=== PATIENT | female | born 1940 | race Caucasian/White ===

== ENCOUNTER 2019-03-28 11:32 | Inpatient (IN) ==
[2019-03-28] MEDS ORDERED: FUROSEMIDE 40 MG/4 ML VIAL IV ONE (12:02)
--- NOTE | 2019-03-28 12:05 | Emergency Department Note ---
General Adult HPI - General Chief complaint: Chest Pain Stated complaint: chest pain Time Seen by Provider: 03/28/19 11:48 Source: patient Mode of arrival: wheelchair Limitations: other (Possible cognitive decline) - History of Present Illness HPI Narrative: 78-year-old female comes in for 3-week history of swelling in her lower legs. Apparently she took a one-month trip to [place] with a group and ran out of her diuretic while there. Anyways since she has come back from [place] her legs have swollen now. She normally sees Nadia Howell over [facility] but she could not get in today so she went to the [facility] care clinic at [facility]. They sent her here. She was complaining of a little bit of chest pain as well but this is resolved. No shortness of breath fever chills nausea vomiting. I am unable to get much in the way of meaningful history or review of systems as patient is clearly not mentating well in terms of short-term memory but this may be her baseline - Related Data Home Medications Medication Instructions Recorded Confirmed Albuterol Sulfate 2.5 mg IH DAILY 03/08/17 11/18/18 Atorvastatin [Lipitor] 20 mg PO HS 03/08/17 11/18/18 LORazepam [Ativan] 2 mg PO HS 03/08/17 11/18/18 Lisinopril [Zestril] 5 mg PO DAILY 03/08/17 11/18/18 fluoxetine 20 mg capsule 20 mg PO QDAY 05/20/18 01/21/19 pentosan polysulfate sodium 100 mg 100 mg PO TID 05/20/18 01/21/19 capsule chlorthalidone 25 mg tablet 25 mg PO QDAY 08/13/18 11/18/18 lorazepam 0.5 mg tablet 0.5 mg PO BID PRN tab 08/13/18 11/18/18 potassium chloride 10 mEq 10 meq PO QDAY 08/13/18 11/18/18 capsule,extended release Sertraline [Zoloft] 25 mg PO DAILY 08/23/18 11/18/18 Previous Rx's Medication Instructions Recorded atorvastatin 20 mg tablet 20 mg PO QDAY #30 tab 01/21/19 Allergies Allergy/AdvReac Type Severity Reaction Status Date / Time Carbapenems Allergy Intermediate HIVES Verified 01/21/19 14:55 Cephalosporins Allergy Intermediate HIVES Verified 01/21/19 14:55 penicillin G [PENICILLIN G] Allergy Intermediate HIVES Verified 01/21/19 14:55 hydromorphone [From DILAUDID] AdvReac Mild HALLUCINATI Verified 01/21/19 14:55 ONS ADHESIVE TAPE AdvReac Mild SKIN TEARS Uncoded 08/23/18 07:34 Review of Systems All systems ED: reviewed and negative except as stated. Past Medical History - Past Medical History Attestation: Yes: The following information was validated with the patient. [facility] Narrative: Family History (Last Updated 08/13/18 @ 08:30 by Terra Nino) Mother Arthritis Cancer Father Arthritis Heart attack Sister Arthritis Cancer Medical History (Last Updated 08/13/18 @ 08:30 by Terra Nino) Risk for falls (Chronic) Joint pain (Chronic) High blood pressure (Chronic) Insomnia (Chronic) Gallbladder problem (Chronic) Heart trouble (Chronic) Diabetes (Chronic) Depression (Chronic) Daytime sleepiness (Chronic) Bowel disease (Chronic) Blood disorder (Chronic) History of blood clots (Chronic) Bleeding tendency (Chronic) Asthma (Chronic) Diabetes mellitus type 2, controlled, without complications (Chronic) COPD (chronic obstructive pulmonary disease) (Chronic) Crohn's disease (Chronic) CVA (cerebral vascular accident) (Chronic) Bilateral leg edema (Acute) SOB (shortness of breath) (Acute) Fatigue (Acute) Weight gain (Acute) Diarrhea (Acute) Systolic murmur (Chronic) Past Surgical History (Last Updated 08/13/18 @ 08:30 by Terra Nino) History of intraocular lens implant (Acute) History of bowel resection (Chronic ~1989) History of cholecystectomy (Chronic ~1967) History of colonoscopy (Chronic) History of hysterectomy (Chronic ~1969) Medical history: Reports: asthma, COPD, CVA, hypertension, other (Previous DVT). Denies: CAD (coronary artery disease), CHF, myocardial infarction Psychiatric history: Reports: anxiety, depression - Social History smoking status: Former smoker Physical Exam Normocephalic atraumatic. Conjunctive are clear sclerae white nonicteric. N.o nasal discharge or congestion. Oropharynx pink and moist. Dentures. Neck is supple without lymphadenopathy thyromegaly or carotid bruit. Heart is regular rate and rhythm no murmur. Lungs are clear to auscultation bilaterally without wheezes rales rhonchi or respiratory distress. Abdomen soft nontender nondistended. She does have pedal edema +2. She is alert oriented able to answer questions-but slowly and it seems like she does not initially understand the question sometimes. Concern for possible cognitive decline Limitations: no limitations Course Vital Signs Temperature 98.2 F 03/28/19 11:34 Pulse Rate 67 03/28/19 11:34 Respiratory Rate 22 03/28/19 11:34 Blood Pressure 129/59 03/28/19 11:34 Pulse Oximetry (%) 92 03/28/19 11:34 Temperature 98.2 F 03/28/19 11:34 Pulse Rate 73 03/28/19 15:01 Respiratory Rate 13 03/28/19 15:01 Blood Pressure 105/67 03/28/19 15:01 Pulse Oximetry (%) 94 03/28/19 15:01 Medical Decision Making - Lab Data Lab results reviewed: Yes I reviewed the patient's lab results. Result diagrams: 03/28/19 12:23 03/28/19 12:23 Lab Results 03/28/19 03/28/19 03/28/19 Range/Units 12:23 12:23 12:23 WBC 10.5 (4.5-11.0) K/mcL RBC 4.18 (4.00-5.20) M/mcL Hgb 13.2 (12.0-15.0) g/dL Hct 38.6 (36.0-48.0) % POC Hct 38.0 (36.0-48.0) % MCV 92.4 (80.0-100.0) fL MCH 31.5 (26.0-34.0) pg MCHC 34.2 (31.0-36.0) g/dL RDW 15.2 H (11.5-14.5) % Plt Count 273 (140-440) K/mcL MPV 6.9 L (7.4-10.4) fL Gran % 77.6 (38.0-78.0) % Lymph % (Auto) 14.8 L (15.5-49.0) % Bremer % (Auto) 6.9 (1.0-12.0) % Eos % (Auto) 0.4 (0.0-7.0) % Baso % (Auto) 0.3 (0.0-2.0) % Gran # 8.1 H (1.8-8.0) K/mcL Lymph # (Auto) 1.6 (1.5-4.8) K/mcL Bremer # (Auto) 0.7 (0.1-0.9) K/mcL Eos # (Auto) 0 (0.0-0.7) K/mcL Baso # (Auto) 0 (0.0-0.3) K/mcL PT (11.9-14.5) sec INR (0.9-1.1) POC Sodium 137 (133-145) mmol/L Sodium 138 (133-145) mmol/L POC Potassium 2.2 L* (3.3-5.1) mmol/L Potassium 2.3 L* (3.3-5.1) mmol/L POC Chloride 89 L (96-108) mmol/L Chloride 92 L (96-108) mmol/L Carbon Dioxide 33 H (22-30) mmol/L POC Total CO2 36 H (22-30) mmol/L Anion Gap 13.0 (8-16) POC BUN 23 (8-23) mg/dl BUN 24 H (8-23) mg/dl Creatinine 0.9 (0.6-1.1) mg/dl POC Creatinine 1.0 (0.6-1.1) mg/dl GFR Calculation 61 Glucose 109 H (70-105) mg/dL POC Glucose 108 H (70-105) mg/dL Calcium 9.5 (8.6-10.4) mg/dl POC WB Ioniz Calcium 1.12 L (1.16-1.32) mmol/L Total Bilirubin 2.2 H (0.0-1.0) mg/dL AST 30 (0-37) U/l ALT 34 (0-40) U/l Alkaline Phosphatase 63 (39-117) U/L Total Creatine Kinase 70 69 (24-170) IU/L CK-MB (CK-2) 3.3 H (0-2.9) ng/ml Myoglobin 73 H (25-58) ng/ml Troponin T (0-0.03) ng/ml NT-Pro-B Natriuret Pep 276.4 (0-450) pg/ml Total Protein 6.4 (5.9-8.4) gm/dL Albumin 3.9 (3.2-5.2) gm/dL Globulin 2.5 (2.2-3.7) gm/dL Albumin/Globulin Ratio 1.6 (1.0-2.3) Lipase 12 (7-60) U/L 03/28/19 03/28/19 03/28/19 Range/Units 12:23 12:23 14:28 WBC (4.5-11.0) K/mcL RBC (4.00-5.20) M/mcL Hgb (12.0-15.0) g/dL Hct (36.0-48.0) % POC Hct (36.0-48.0) % MCV (80.0-100.0) fL MCH (26.0-34.0) pg MCHC (31.0-36.0) g/dL RDW (11.5-14.5) % Plt Count (140-440) K/mcL MPV (7.4-10.4) fL Gran % (38.0-78.0) % Lymph % (Auto) (15.5-49.0) % Bremer % (Auto) (1.0-12.0) % Eos % (Auto) (0.0-7.0) % Baso % (Auto) (0.0-2.0) % Gran # (1.8-8.0) K/mcL Lymph # (Auto) (1.5-4.8) K/mcL Bremer # (Auto) (0.1-0.9) K/mcL Eos # (Auto) (0.0-0.7) K/mcL Baso # (Auto) (0.0-0.3) K/mcL PT 14.6 H (11.9-14.5) sec INR 1.1 (0.9-1.1) POC Sodium (133-145) mmol/L Sodium (133-145) mmol/L POC Potassium (3.3-5.1) mmol/L Potassium (3.3-5.1) mmol/L POC Chloride (96-108) mmol/L Chloride (96-108) mmol/L Carbon Dioxide (22-30) mmol/L POC Total CO2 (22-30) mmol/L Anion Gap (8-16) POC BUN (8-23) mg/dl BUN (8-23) mg/dl Creatinine (0.6-1.1) mg/dl POC Creatinine (0.6-1.1) mg/dl GFR Calculation Glucose (70-105) mg/dL POC Glucose (70-105) mg/dL Calcium (8.6-10.4) mg/dl POC WB Ioniz Calcium (1.16-1.32) mmol/L Total Bilirubin (0.0-1.0) mg/dL AST (0-37) U/l ALT (0-40) U/l Alkaline Phosphatase (39-117) U/L Total Creatine Kinase (24-170) IU/L CK-MB (CK-2) (0-2.9) ng/ml Myoglobin (25-58) ng/ml Troponin T 0.01 < 0.01 (0-0.03) ng/ml NT-Pro-B Natriuret Pep (0-450) pg/ml Total Protein (5.9-8.4) gm/dL Albumin (3.2-5.2) gm/dL Globulin (2.2-3.7) gm/dL Albumin/Globulin Ratio (1.0-2.3) Lipase (7-60) U/L - Radiology Data Radiology results reviewed: Yes I reviewed the patient's radiology results. Chest x-ray showed no acute change - EKG Data EKG #1 EKG attestation: Yes I reviewed and interpreted this EKG., Yes There are no EKG findings of acute coronary syndrome, Yes This EKG will be read by brim stitcher EKG results narrative: EKG does not meet criteria as there is only ST depression of 1 mm in V3 but not in 2 contiguous leads Disposition Pt seen by SOLAR PANEL INSTALLATION SUPERVISOR/PA only: No Clinical Impression: Hypokalemia Summary: 78-year-old with recurring acute on chronic leg edema likely from CHF comes in after she ran out of medicine 3 weeks ago. She had some mild chest pain so we will go ahead and order an echo as well as laboratory. EKG was unrevealing. Chest x-ray is pending. Hypokalemia unclear cause. Start K rider and 40 mEq p.o. Repeat troponin was done which was also negative despite CK-MB being mildly elevated. Chest x-ray was unrevealing Discussed findings with hospitalist, Dr. Novak. He agreed to accept the patient for further care and evaluation in the Disposition: Xfer As Inpt ([facility]) Condition: Serious Referrals: Nadia Howell ARNP [Primary Care Provider] -
[2019-03-28] MEDS ORDERED: POTASSIUM CHLORIDE 40 MEQ in DEXTROSE 5% IN WATER 500 ML IV ONE (12:38)
[2019-03-28] MEDS ORDERED: POTASSIUM CHLORIDE 20 MEQ TABLET PO ONE (12:38)
[2019-03-28 12:39] LABS: POC Blood Urea Nitrogen 23 mg/dl (8-23); POC CO2 36 mmol/L (22-30); POC Calcium, Ionized 1.12 mmol/L (1.16-1.32); POC Chloride 89 mmol/L (96-108); POC Glucose, Random 108 mg/dL (70-105); POC Potassium 2.2 mmol/L (3.3-5.1); POC Sodium 137 mmol/L (133-145)
--- NOTE | 2019-03-28 12:45 | XRay Report ---
INDICATION: Chest pain TECHNIQUE: PA and lateral upright chest x-ray COMPARISON: Previous chest x-rays dated 06/10/2018, 12/16/2017, 05/07/2014 FINDINGS:There is a loop recording device projected over the left hemithorax. Lungs are negative. No parenchymal infiltrate or mass. No focal pulmonary parenchymal abnormality. Heart size and vascularity are normal. No pulmonary edema. No pulmonary congestion. There is no pleural fluid. IMPRESSION: 1. No acute or focal abnormality 2. No interval change since 06/10/2018 Interpreted and Authenticated by: Jesus Cisneros 03/28/19
[2019-03-28 12:50] LABS: Basophils # (Auto) 0 K/mcL (0.0-0.3); Basophils % (Auto) 0.3 % (0.0-2.0); Eosinophils # (Auto) 0 K/mcL (0.0-0.7); Eosinophils % (Auto) 0.4 % (0.0-7.0); Granulocytes % (Auto) 77.6 % (38.0-78.0); Hematocrit 38.6 % (36.0-48.0); Hemoglobin 13.2 g/dL (12.0-15.0); Lymphocytes # (Auto) 1.6 K/mcL (1.5-4.8); Lymphocytes % (Auto) 14.8 % (15.5-49.0); Mean Cell Volume 92.4 fL (80.0-100.0); Mean Corpuscular HGB Conc 34.2 g/dL (31.0-36.0); Mean Platelet Volume 6.9 fL (7.4-10.4); Monocytes # (Auto) 0.7 K/mcL (0.1-0.9); Monocytes % (Auto) 6.9 % (1.0-12.0); Platelet Count 273 K/mcL (140-440); RBC 4.18 M/mcL (4.00-5.20); Red Cell Distribution Width 15.2 % (11.5-14.5); WBC 10.5 K/mcL (4.5-11.0)
[2019-03-28 12:59] LABS: INR 1.1 (0.9-1.1); Prothrombin Time 14.6 sec (11.9-14.5)
[2019-03-28 13:13] LABS: Creatine Kinase MB 3.3 ng/ml (0-2.9); Myoglobin 73 ng/ml (25-58)
[2019-03-28 13:14] LABS: proBNP 276.4 pg/ml (0-450)
[2019-03-28 13:20] LABS: Creatine Kinase 69 IU/L (24-170)
[2019-03-28 13:27] LABS: ALT/SGPT 34 U/l (0-40); AST/SGOT 30 U/l (0-37); Albumin 3.9 gm/dL (3.2-5.2); Albumin/Globulin Ratio 1.6 (1.0-2.3); Alkaline Phosphatase 63 U/L (39-117); Bilirubin,Total 2.2 mg/dL (0.0-1.0); Blood Urea Nitrogen 24 mg/dl (8-23); Calcium 9.5 mg/dl (8.6-10.4); Carbon Dioxide 33 mmol/L (22-30); Chloride 92 mmol/L (96-108); Creatine Kinase 70 IU/L (24-170); Globulin 2.5 gm/dL (2.2-3.7); Glomerular Filtration Rate 61; Glucose 109 mg/dL (70-105)
--- NOTE | 2019-03-28 15:36 | Internal Med History&Physical ---
Medical - H&P: [facility] Patient information: Note initiated : 03/28/19 at 3:35 pm Service Date, if different from initiated Date: [] Patient: Maddy Lo a 78 y/o F admitted on for chest pain. Chief Complaint: [] Chief complaint: Ankle swelling History of present illness: Ms. Lo is a 78 year old F morbidly obese lady with a history of chronic lower extremity lymphedema/hypertension/CVA/COPD who presents to the ER after feeling extremely weak unable to move her legs. Apparently she went to [facility] today but was unable to walk. She subsequently called her friend and was brought into the ER for evaluation. Initial work-up was essentially unremarkable except for a potassium of 2.2. Patient received 40 mg of oral and IV potassium and subsequently hospitalist service was consulted in light of critical hypokalemia. Echo was ordered however review of echocardiogram performed June 2018 reveals diastolic dysfunction with LVH and preserved EF. She clearly denies recent diarrhea, nausea vomiting or lack of appetite. She normally uses diuretics for a long-standing lower extremity lymphedema and ran out of it during a trip to [place]. Patient restarted taking diuretics after ex periencing increasing weight gain along with lower extremity swelling and difficulty ambulation. Other than that patient denies high salt intake, chest pain, lightheadedness, chest palpitation or huov-pkg-wgiuiaz medications intake. Review of systems A 10 point review of system was performed and is negative except for one discussed above Medical - H&P: PMH Medical history: Risk for falls (Chronic) Joint pain (Chronic) High blood pressure (Chronic) Insomnia (Chronic) Gallbladder problem (Chronic) Heart trouble (Chronic) Diabetes (Chronic) Depression (Chronic) Daytime sleepiness (Chronic) Bowel disease (Chronic) Blood disorder (Chronic) History of blood clots (Chronic) Bleeding tendency (Chronic) Asthma (Chronic) Diabetes mellitus type 2, controlled, without complications (Chronic) with weight loss of 78 lbs., reports has resolved 1--19 COPD (chronic obstructive pulmonary disease) (Chronic) Crohn's disease (Chronic) treated with Pentasa. CVA (cerebral vascular accident) (Chronic) Bilateral leg edema (Acute) SOB (shortness of breath) (Acute) Fatigue (Acute) Weight gain (Acute) Diarrhea (Acute) Systolic murmur (Chronic) Surgical History (Updated 03/08/19 @ 08:30 by Terra Nino) History of intraocular lens implant (Acute) bilateral History of bowel resection (Chronic ~1989) History of cholecystectomy (Chronic ~1967) History of colonoscopy (Chronic) History of hysterectomy (Chronic ~1969) Social History (Updated 03/28/19 @ 11:15 by JENIFFER Tanner) marital status: smoking status: Former smoker alcohol intake frequency: holiday/special occasion only substance use type: does not use Lives at [facility] alone and usually drives Family history: reviewed and not pertinent Drug use: none Alcohol use: none Medical - H&P: Meds Home Medications Medication Instructions Recorded Confirmed Type Albuterol Sulfate 2.5 mg IH DAILY 03/08/17 11/18/18 History Atorvastatin [Lipitor] 20 mg PO HS 03/08/17 11/18/18 History LORazepam [Ativan] 2 mg PO HS 03/08/17 11/18/18 History Lisinopril [Zestril] 5 mg PO DAILY 03/08/17 11/18/18 History fluoxetine 20 mg capsule 20 mg PO QDAY 05/20/18 01/21/19 History pentosan polysulfate sodium 100 mg 100 mg PO TID 05/20/18 01/21/19 History capsule chlorthalidone 25 mg tablet 25 mg PO QDAY 08/13/18 11/18/18 History lorazepam 0.5 mg tablet 0.5 mg PO BID PRN tab 08/13/18 11/18/18 History potassium chloride 10 mEq 10 meq PO QDAY 08/13/18 11/18/18 History capsule,extended release Sertraline [Zoloft] 25 mg PO DAILY 08/23/18 11/18/18 History atorvastatin 20 mg tablet 20 mg PO QDAY #30 tab 01/21/19 01/21/19 Rx Allergies Allergy/AdvReac Type Severity Reaction Status Date / Time Carbapenems Allergy Intermediate HIVES Verified 01/21/19 14:55 Cephalosporins Allergy Intermediate HIVES Verified 01/21/19 14:55 penicillin G [PENICILLIN G] Allergy Intermediate HIVES Verified 01/21/19 14:55 hydromorphone [From DILAUDID] AdvReac Mild HALLUCINATI Verified 01/21/19 14:55 ONS ADHESIVE TAPE AdvReac Mild SKIN TEARS Uncoded 08/23/18 07:34 Medical - H&P: Exam - Constitutional Vitals: Temp Pulse Resp BP Pulse Ox 98.2 F 72 13 88/33 97 03/28/19 11:34 03/28/19 15:31 03/28/19 15:31 03/28/19 15:31 03/28/19 15:31 General appearance: morbidly obese Exam: Alert but anxious head normocephalic Oral cavity dry No ear nose discharge Eye movement symmetrical Neck no lymphadenopathy or JVD S1-S2 regular rhythm ESM grade 1 Diminished breath sounds bases Abdomen soft nontender nondistended, pendulous Lower extremity 1+ pitting edema from knee to the ankle extending to the dorsum of the foot Skin no suspicious lesion psych alert cooperative Neuro nonfocal Medical - H&P: Reslt - Labs CBC & Chem 7: 03/28/19 12:23 03/28/19 12:23 Labs: Short CBC 03/28/19 Range/Units 12:23 WBC 10.5 (4.5-11.0) K/mcL Hgb 13.2 (12.0-15.0) g/dL Hct 38.6 (36.0-48.0) % Plt Count 273 (140-440) K/mcL BMP 03/28/19 12:23 Sodium 138 Potassium 2.3 L* Chloride 92 L Carbon Dioxide 33 H BUN 24 H Creatinine 0.9 Glucose 109 H Calcium 9.5 Cardiac Enzymes 03/28/19 03/28/19 03/28/19 Range/Units 12:23 12:23 12:23 Total Creatine Kinase 70 69 (24-170) IU/L CK-MB (CK-2) 3.3 H (0-2.9) ng/ml Troponin T 0.01 (0-0.03) ng/ml 03/28/19 Range/Units 14:28 Total Creatine Kinase (24-170) IU/L CK-MB (CK-2) (0-2.9) ng/ml Troponin T < 0.01 (0-0.03) ng/ml Liver Function 03/28/19 Range/Units 12:23 Total Bilirubin 2.2 H (0.0-1.0) mg/dL AST 30 (0-37) U/l ALT 34 (0-40) U/l Alkaline Phosphatase 63 (39-117) U/L Albumin 3.9 (3.2-5.2) gm/dL Medical - H&P: A/P (1) Hypokalemia Current visit: Yes Status: Acute * Critical hypokalemia 2.2-check magnesium level. Underlying metabolic alkalosis likely secondary to diuresis/thiazide use. Start oral and IV replacement. Unclear etiology. No indication of hyperaldosteronism. * Lower external lymphedema-last echo preserved ejection fraction with diastolic dysfunction and likely pulmonary hypertension in the setting of obesity * History of COPD likely CO2 retention * History of hypertension hold KENNY inhibitor/thiazide until systolics and potassium improves * Hyperlipidemia continue statin * Anxiety disorder continue SSRI(current medication based list being obtained as unlikely patient on dual SSRI based on home med list) * Full code * Prophylaxis - heparin PLAN * Observation admit * aggressive IV and oral potassium replacement * Check magnesium * Limb elevation/diuresis * Prior medical condition management home meds * PT OT/nutrition support * Discharge planning
[2019-03-28] MEDS ORDERED: MAGNESIUM SULFATE 2 GM/50 ML BAG IV PRN (16:06)
[2019-03-28] MEDS ORDERED: POTASSIUM CHLORIDE 40 MEQ in DEXTROSE 5% IN WATER 500 ML IV PRN (16:06)
[2019-03-28] MEDS ORDERED: POTASSIUM CHLORIDE 20 MEQ PACKET PO PRN (16:06)
[2019-03-28] MEDS ORDERED: ONDANSETRON 4 MG/2 ML VIAL IV PRN (16:06)
[2019-03-28] MEDS ORDERED: ACETAMINOPHEN 650 MG/65 ML BOTTLE IV PRN (16:06)
[2019-03-28] MEDS: FUROSEMIDE 40 MG/4 ML VIAL IV SCH (16:46)
[2019-03-28] MEDS: POTASSIUM CHLORIDE 20 MEQ/15 ML ML PO SCH (16:48)
[2019-03-28] MEDS: ACETAMINOPHEN 325 MG TABLET PO PRN (20:27)
[2019-03-28] MEDS: HEPARIN 5,000 UNIT/ML VIAL SQ SCH (20:27)
[2019-03-28] MEDS: DOCUSATE SODIUM 100 MG CAPSULE PO SCH (20:27)
[2019-03-28] MEDS: SENNOSIDES/DOCUSATE SODIUM 1 TAB TABLET PO SCH (20:27)
[2019-03-28] MEDS: 0.9 % SODIUM CHLORIDE 10 ML SYRINGE IV SCH (20:29)
[2019-03-28 21:30] LABS: ALT/SGPT 33 U/l (0-40); AST/SGOT 31 U/l (0-37); Albumin 3.6 gm/dL (3.2-5.2); Albumin/Globulin Ratio 1.2 (1.0-2.3); Alkaline Phosphatase 62 U/L (39-117); Bilirubin,Direct 0.3 mg/dL (0.0-0.3); Bilirubin,Total 2.3 mg/dL (0.0-1.0); Blood Urea Nitrogen 20 mg/dl (8-23); Calcium 9.4 mg/dl (8.6-10.4); Carbon Dioxide 33 mmol/L (22-30); Chloride 89 mmol/L (96-108); Globulin 3.1 gm/dL (2.2-3.7); Glomerular Filtration Rate 70; Glucose 128 mg/dL (70-105); Lactate Dehydrogenase 330 U/L (94-250); Phosphorous 2.8 mg/dL (2.7-4.5); Triglycerides 126 mg/dl (<150); Uric Acid 7.8 mg/dL (2.5-8.0)
[2019-03-29 04:48] LABS: Hematocrit 36.6 % (36.0-48.0); Hemoglobin 12.3 g/dL (12.0-15.0); Mean Cell Volume 93.8 fL (80.0-100.0); Mean Corpuscular HGB Conc 33.6 g/dL (31.0-36.0); Mean Platelet Volume 7.4 fL (7.4-10.4); Platelet Count 249 K/mcL (140-440); RBC 3.91 M/mcL (4.00-5.20); Red Cell Distribution Width 14.9 % (11.5-14.5)
[2019-03-29 05:23] LABS: ALT/SGPT 27 U/l (0-40); AST/SGOT 26 U/l (0-37); Albumin 3.1 gm/dL (3.2-5.2); Albumin/Globulin Ratio 1.2 (1.0-2.3); Alkaline Phosphatase 54 U/L (39-117); Bilirubin,Direct 0.3 mg/dL (0.0-0.3); Bilirubin,Total 2.2 mg/dL (0.0-1.0); Blood Urea Nitrogen 19 mg/dl (8-23); Calcium 9.2 mg/dl (8.6-10.4); Carbon Dioxide 35 mmol/L (22-30); Chloride 91 mmol/L (96-108); Globulin 2.5 gm/dL (2.2-3.7); Glomerular Filtration Rate 82; Glucose 111 mg/dL (70-105); Lactate Dehydrogenase 240 U/L (94-250); Phosphorous 2.8 mg/dL (2.7-4.5); Triglycerides 105 mg/dl (<150); Uric Acid 8.1 mg/dL (2.5-8.0)
[2019-03-29] MEDS ORDERED: POTASSIUM CHLORIDE 20 MEQ/10 ML VIAL IV ONE (05:27)
[2019-03-29] MEDS: 0.9 % SODIUM CHLORIDE 10 ML SYRINGE IV SCH ×3 (05:28→21:27)
[2019-03-29 05:30] LABS: Lymphocytes % 17 % (15-49); Monocytes % (Manual) 7 % (1-12); Platelet Estimate NORMAL (NORMAL); RBC Morphology NORMAL (NORMAL); Segmented Neutrophils % 77 % (38-78)
[2019-03-29] MEDS: FUROSEMIDE 40 MG/4 ML VIAL IV SCH ×2 (08:44→15:31)
[2019-03-29] MEDS: HEPARIN 5,000 UNIT/ML VIAL SQ SCH ×2 (08:44→21:27)
[2019-03-29] MEDS: POTASSIUM CHLORIDE 20 MEQ/15 ML ML PO SCH ×2 (08:44→17:35)
[2019-03-29] MEDS: MULTIVIT,THER IRON,CA,FA & MIN 1 TABLET PO SCH (08:45)
[2019-03-29] MEDS: DOCUSATE SODIUM 100 MG CAPSULE PO SCH ×2 (08:46→21:23)
--- NOTE | 2019-03-29 14:21 | Internal Med Progress Note ---
Medical - PN: Subj Patient information: Note initiated : 03/29/19 at 2:16 pm Service Date, if different from initiated Date: [] Patient: Maddy Lo a 78 y/o F admitted on 03/28/19 for chest pain. Chief Complaint: [] Interval history: Ms. Lo is a 78 year old F morbidly obese lady with a history of chronic lower extremity lymphedema/hypertension/CVA/COPD who presents to the ER after being unable to walk and feeling extremely weak. As per history she went to [facility] today but was unable to walk due to significant leg swelling and cramping. She subsequently called her friend and was brought into the ER for evaluation. Initial work-up was essentially unremarkable except for a potassium of 2.2. Patient received 40 meq of oral and IV potassium and subsequently hospitalist service was consulted in light of critical hypokalemia. Echo was ordered however review of echocardiogram performed June 2018 reveals diastolic dysfunction with LVH and preserved EF. She clearly denied recent diarrhea, nausea vomiting or lack of appetite. She normally uses diuretics for a long-standing lower extremity lymphedema and ran out of it during a trip to [place]. Patient restarted taking diuretics after experiencing increasing weight gain along with lower extremity swelling and difficulty ambulation. Other than that patient denies high salt intake, chest pain, lightheadedness, chest palpitation or ksfk-yru-ubrvsty medications intake. Later in the evening I was able to connect with patient's daughter at [place]. She is able to provide much of the history but endorses that her mother has significant dementia. Her mother actually called shortly after admission and told her that she has been in the hospital for more than 24 hours. While questioning patient endorsed that she lives at [facility] but per daughter she has not been there for over 45 years. Daughter was concerned about patient's building paranoia towards her sisters who are always willing to help her but she suspects that they were stealing from her and has several relationship. Daughter expressed concerns about her safety and inability to take care of self and requested if her mother could be placed at the care facility/assisted living. 03/29-patient doing better. Potassium up to 2.7 status post 80 meq replacement. Continue additional 80 meq potassium replacement today magnesium at 1.7. Patient remains paranoid intermittently paranoid with in between lucid intervals. She has been hemodynamically stable without any telemetry medically events. She has been cooperative with physical therapy. No family members at [facility]. Echocardiogram reveals preserved ejection fraction with concentric LVH. No evidence of pulmonary hypertension. - Constitutional Vitals: Vital Signs Temp Pulse Resp BP Pulse Ox 97.6 F 80 20 113/68 93 03/29/19 11:28 03/29/19 11:28 03/29/19 11:28 03/29/19 11:28 03/29/19 11:28 Period Temp Pulse Resp BP Sys/Ring Pulse Ox Last 24 Hr 97.4 F-98.5 F 68-84 12-24 88-132/33-75 91-97 Intake and Output 03/29/19 03/29/19 03/29/19 05:59 13:59 21:59 Intake Total 200 360 Output Total 100 1550 Balance 100 -1190 Intake & Output: Intake & Output 03/29/19 03/29/19 03/29/19 05:59 13:59 21:59 Intake Total 200 360 Output Total 100 1550 Balance 100 -1190 Intake: Oral 200 360 Output: Void Amount 1450 Urine/Stool Mix 100 Stool 100 Other: Meal Lunch Percent of Meal Consumed 50% Feeding Ability Independent Urine Appearance Clear Urine Color Bright Yellow Urine Odor Normal Stool Size Small Small Stool Color Brown Yellow Stool Consistency Soft Loose # Bowel Movements 1 General appearance: cooperative, no acute distress Exam: Profound dementia Intermittent lucid intervals Nonlabored breathing Intermittent anxiety No telemetry events Lymphedema much improved Medical - PN: Obj Da - Labs CBC & Chem 7: 03/29/19 03:40 03/29/19 03:40 Labs: Abnormal Lab Results 03/29/19 03/29/19 03/28/19 03:40 03:40 20:11 RBC 3.91 L RDW 14.9 H MPV Lymph % (Auto) Gran # PT POC Potassium Potassium 2.7 L* 3.2 L POC Chloride Chloride 91 L 89 L Carbon Dioxide 35 H 33 H POC Total CO2 BUN Glucose 111 H 128 H POC Glucose Uric Acid 8.1 H POC WB Ioniz Calcium Total Bilirubin 2.2 H 2.3 H Lactate Dehydrogenase 330 H CK-MB (CK-2) Myoglobin Total Protein 5.6 L Albumin 3.1 L 03/28/19 03/28/19 03/28/19 12:23 12:23 12:23 RBC RDW MPV Lymph % (Auto) Gran # PT 14.6 H POC Potassium 2.2 L* Potassium 2.3 L* POC Chloride 89 L Chloride 92 L Carbon Dioxide 33 H POC Total CO2 36 H BUN 24 H Glucose 109 H POC Glucose 108 H Uric Acid POC WB Ioniz Calcium 1.12 L Total Bilirubin 2.2 H Lactate Dehydrogenase CK-MB (CK-2) 3.3 H Myoglobin 73 H Total Protein Albumin 03/28/19 12:23 RBC RDW 15.2 H MPV 6.9 L Lymph % (Auto) 14.8 L Gran # 8.1 H PT POC Potassium Potassium POC Chloride Chloride Carbon Dioxide POC Total CO2 BUN Glucose POC Glucose Uric Acid POC WB Ioniz Calcium Total Bilirubin Lactate Dehydrogenase CK-MB (CK-2) Myoglobin Total Protein Albumin Meds: Medications Acetaminophen (Tylenol) 650 mg PO Q4-6HP PRN; Protocol PRN Reason: Per Pain Protocol/Fever > 101 Last Admin: 03/28/19 20:27 Dose: 650 mg Documented by: Docusate Sodium (Colace) 100 mg PO BID [facility] Last Admin: 03/29/19 08:46 Dose: Not Given Documented by: Furosemide (Lasix) 20 mg IV BIDD [facility] Last Admin: 03/29/19 08:44 Dose: 20 mg Documented by: Heparin Sodium (Porcine) (Heparin) 5,000 unit SQ Q12 [facility] Last Admin: 03/29/19 08:44 Dose: 5,000 unit Documented by: Acetaminophen (Ofirmev) 650 mg in 65 mls @ 130 mls/hr IV Q6HP PRN; Protocol PRN Reason: Per Pain Protocol/Fever > 101 Potassium Chloride 40 meq/ (Dextrose) 520 mls @ 130 mls/hr IV UD PRN PRN Reason: K+ = or < 3.5 Last Admin: 03/29/19 05:27 Dose: 130 mls/hr Documented by: Magnesium Sulfate (Magnesium Sulfate) 2 gm in 50 mls @ 50 mls/hr IV UD PRN PRN Reason: MG = or < 1.7 Last Admin: 03/29/19 10:21 Dose: 25 mls/hr Documented by: Iron Carb/Multivit/Development Educator/Folic Acid (Multivitamin W/Minerals) 1 tab PO DAILY [facility] Last Admin: 03/29/19 08:45 Dose: 1 tab Documented by: Melatonin (Melatonin 3mg Tablet) 6 mg PO HSP PRN PRN Reason: Insomnia Ondansetron HCl (Zofran) 4 mg IV Q4-6HP PRN; Protocol PRN Reason: Nausea And Vomiting Potassium Chloride (Klor-Con) 40 meq PO DAILYP PRN PRN Reason: K+ < 3.5 Potassium Chloride (Potassium Chloride) 15 meq PO BIDCC [facility] Last Admin: 03/29/19 08:44 Dose: 15 meq Documented by: Senna/Docusate Sodium (Senna Plus Tablet) 1 tab PO HS [facility] Last Admin: 03/28/19 20:27 Dose: 1 tab Documented by: Sodium Chloride (Saline Flush) 10 ml IV Q8 [facility] Last Admin: 03/29/19 05:28 Dose: 10 ml Documented by: Medical - PN: A/P - Time Spent With Patient Total time spent is greater than 50% in coordination of care (as documented) at patient's floor/unit and/or counseling patient: 25 - 35 minutes (1) Hypokalemia Status: Acute Assessment and plan: * Critical hypokalemia improved from 2.2->2.7. Continue additional potassium replacement. No signs of hyperaldosteronism. * Lower extremity lymphedema-echo shows preserved EF. Continue limb elevation/compression wraps/diuresis * History of COPD likely CO2 retention. Continue bronchodilators * History of hypertension -currently normotensive. Restart antihypertensives once systolics over 130 * Hyperlipidemia/history of CVA continue statin * Anxiety disorder continue sertraline, hold benzodiazepine * Full code * Prophylaxis - heparin PLAN * Continue telemetry monitoring * Continue potassium replacement * Limb elevation/diuresis/compressive wraps * Pre-existing medical condition management home meds * PT OT/nutrition support * Hold antihypertensives * Discharge planning per case management likely to SNF in the setting of dementia/high risk decompensation Current Visit: Yes
[2019-03-29] MEDS ORDERED: ALBUTEROL SULFATE 1 PUFF INHALER INH PRN (14:30)
[2019-03-29] MEDS: SENNOSIDES/DOCUSATE SODIUM 1 TAB TABLET PO SCH (21:23)
[2019-03-29] MEDS: MELATONIN 3 MG TABLET PO PRN (21:27)
[2019-03-29] MEDS: ATORVASTATIN 20 MG TABLET PO SCH (21:27)
[2019-03-30 05:17] LABS: Hematocrit 38.2 % (36.0-48.0); Hemoglobin 12.9 g/dL (12.0-15.0); Mean Cell Volume 94.4 fL (80.0-100.0); Mean Corpuscular HGB Conc 33.8 g/dL (31.0-36.0); Mean Platelet Volume 7.6 fL (7.4-10.4); Platelet Count 245 K/mcL (140-440); RBC 4.05 M/mcL (4.00-5.20); Red Cell Distribution Width 15.1 % (11.5-14.5)
[2019-03-30] MEDS: 0.9 % SODIUM CHLORIDE 10 ML SYRINGE IV SCH ×3 (05:19→20:21)
[2019-03-30 06:22] LABS: Eosinophils % (Manual) 1 % (0-7); Lymphocytes % 19 % (15-49); Monocytes % (Manual) 4 % (1-12); Platelet Estimate NORMAL (NORMAL); RBC Morphology NORMAL (NORMAL); Segmented Neutrophils % 76 % (38-78)
[2019-03-30 06:53] LABS: ALT/SGPT 24 U/l (0-40); AST/SGOT 27 U/l (0-37); Albumin 3.3 gm/dL (3.2-5.2); Albumin/Globulin Ratio 1.2 (1.0-2.3); Alkaline Phosphatase 57 U/L (39-117); Bilirubin,Direct 0.3 mg/dL (0.0-0.3); Bilirubin,Total 2.3 mg/dL (0.0-1.0); Blood Urea Nitrogen 14 mg/dl (8-23); Calcium 9.1 mg/dl (8.6-10.4); Carbon Dioxide 32 mmol/L (22-30); Chloride 90 mmol/L (96-108); Globulin 2.7 gm/dL (2.2-3.7); Glomerular Filtration Rate 87; Glucose 143 mg/dL (70-105); Lactate Dehydrogenase 284 U/L (94-250); Phosphorous 2.6 mg/dL (2.7-4.5); Triglycerides 109 mg/dl (<150); Uric Acid 6.9 mg/dL (2.5-8.0)
[2019-03-30] MEDS: FUROSEMIDE 40 MG/4 ML VIAL IV SCH ×2 (09:04→17:32)
[2019-03-30] MEDS: HEPARIN 5,000 UNIT/ML VIAL SQ SCH ×2 (09:05→20:20)
[2019-03-30] MEDS: LISINOPRIL 5 MG TABLET PO SCH (09:05)
[2019-03-30] MEDS: SERTRALINE 50 MG TABLET PO SCH (09:06)
[2019-03-30] MEDS: MULTIVIT,THER IRON,CA,FA & MIN 1 TABLET PO SCH (09:06)
[2019-03-30] MEDS: DOCUSATE SODIUM 100 MG CAPSULE PO SCH ×2 (09:06→20:15)
[2019-03-30] MEDS: POTASSIUM CHLORIDE 20 MEQ/15 ML ML PO SCH ×2 (09:06→17:32)
--- NOTE | 2019-03-30 10:43 | Internal Med Progress Note ---
Medical - PN: Subj Patient information: Note initiated : 03/30/19 at 10:40 am Service Date, if different from initiated Date: [] Patient: Maddy Lo a 78 y/o F admitted on 03/28/19 for chest pain. Chief Complaint: [] Interval history: Ms. Lo is a 78 year old F morbidly obese lady with a history of chronic lower extremity lymphedema/hypertension/CVA/COPD who presents to the ER after being unable to walk and feeling extremely weak. As per history she went to [facility] today but was unable to walk due to significant leg swelling and cramping. She subsequently called her friend and was brought into the ER for evaluation. Initial work-up was essentially unremarkable except for a potassium of 2.2. Patient received 40 meq of oral and IV potassium and subsequently hospitalist service was consulted in light of critical hypokalemia. Echo was ordered however review of echocardiogram performed June 2018 reveals diastolic dysfunction with LVH and preserved EF. She clearly denied recent diarrhea, nausea vomiting or lack of appetite. She normally uses diuretics for a long-standing lower extremity lymphedema and ran out of it during a trip to [place]. Patient restarted taking diuretics after experiencing increasing weight gain along with lower extremity swelling and difficulty ambulation. Other than that patient denies high salt intake, chest pain, lightheadedness, chest palpitation or cjse-dbr-lafupes medications intake. Later in the evening I was able to connect with patient's daughter at [place]. She is able to provide much of the history but endorses that her mother has significant dementia. Her mother actually called shortly after admission and told her that she has been in the hospital for more than 24 hours. While questioning patient endorsed that she lives at [facility] but per daughter she has not been there for over 45 years. Daughter was concerned about patient's building paranoia towards her sisters who are always willing to help her but she suspects that they were stealing from her and has several relationship. Daughter expressed concerns about her safety and inability to take care of self and requested if her mother could be placed at the care facility/assisted living. 03/29-patient doing better. Potassium up to 2.7 status post 80 meq replacement. Continue additional 80 meq potassium replacement today magnesium at 1.7. Patient remains paranoid intermittently paranoid with in between lucid intervals. She has been hemodynamically stable without any telemetry medically events. She has been cooperative with physical therapy. No family members at bedside. Echocardiogram reveals preserved EF with concentric LVH. No evidence of pulmonary hypertension. 03/30-potassium improved to 3.3. Continue additional 80 meq potassium replacement. Patient agreeable to SNF transfer. Case management coordinating. Diuresing well with over 3000 cc net negative fluid balance. Able to ambulate. Continue PT OT/nutrition support - Constitutional Vitals: Vital Signs Temp Pulse Resp BP Pulse Ox 97.7 F 64 18 134/80 96 03/30/19 08:00 03/30/19 08:00 03/30/19 08:00 03/30/19 08:00 03/30/19 08:00 Period Temp Pulse Resp BP Sys/Ring Pulse Ox Last 24 Hr 97.4 F-98.7 F 64-83 16-20 110-134/51-82 93-97 Intake and Output 03/29/19 03/30/19 03/30/19 21:59 05:59 13:59 Intake Total 240 360 Output Total 500 225 Balance -260 135 Weight 190 lb 12.8 oz Intake & Output: Intake & Output 03/29/19 03/30/19 03/30/19 21:59 05:59 13:59 Intake Total 240 360 Output Total 500 225 Balance -260 135 Weight 190 lb 12.8 oz Intake: Oral 240 360 Output: Void Amount 500 225 Other: Urine Appearance Clear Urine Color Light Jessika General appearance: no acute distress Exam: Alert Nonlabored breathing No anxiety Lymphedema improved Diminished breath sounds bases Medical - PN: Obj Da - Labs CBC & Chem 7: 03/30/19 04:00 03/30/19 05:00 Labs: Abnormal Lab Results 03/30/19 03/30/19 03/29/19 05:00 04:00 03:40 RBC RDW 15.1 H MPV Lymph % (Auto) Gran # PT POC Potassium Potassium 2.7 L* POC Chloride Chloride 90 L 91 L Carbon Dioxide 32 H 35 H POC Total CO2 BUN Glucose 143 H 111 H POC Glucose Uric Acid 8.1 H POC WB Ioniz Calcium Phosphorus 2.6 L Total Bilirubin 2.3 H 2.2 H Lactate Dehydrogenase 284 H CK-MB (CK-2) Myoglobin Total Protein 5.6 L Albumin 3.1 L 03/29/19 03/28/19 03/28/19 03:40 20:11 12:23 RBC 3.91 L RDW 14.9 H MPV Lymph % (Auto) Gran # PT 14.6 H POC Potassium Potassium 3.2 L POC Chloride Chloride 89 L Carbon Dioxide 33 H POC Total CO2 BUN Glucose 128 H POC Glucose Uric Acid POC WB Ioniz Calcium Phosphorus Total Bilirubin 2.3 H Lactate Dehydrogenase 330 H CK-MB (CK-2) Myoglobin Total Protein Albumin 03/28/19 03/28/19 03/28/19 12:23 12:23 12:23 RBC RDW 15.2 H MPV 6.9 L Lymph % (Auto) 14.8 L Gran # 8.1 H PT POC Potassium 2.2 L* Potassium 2.3 L* POC Chloride 89 L Chloride 92 L Carbon Dioxide 33 H POC Total CO2 36 H BUN 24 H Glucose 109 H POC Glucose 108 H Uric Acid POC WB Ioniz Calcium 1.12 L Phosphorus Total Bilirubin 2.2 H Lactate Dehydrogenase CK-MB (CK-2) 3.3 H Myoglobin 73 H Total Protein Albumin Meds: Medications Acetaminophen (Tylenol) 650 mg PO Q4-6HP PRN; Protocol PRN Reason: Per Pain Protocol/Fever > 101 Last Admin: 03/28/19 20:27 Dose: 650 mg Documented by: Albuterol Sulfate (Ventolin) 1 puff INH Q4HP PRN PRN Reason: Shortness Of Breath Atorvastatin Calcium (Lipitor) 20 mg PO HS [facility] Last Admin: 03/29/19 21:27 Dose: 20 mg Documented by: Docusate Sodium (Colace) 100 mg PO BID [facility] Last Admin: 03/30/19 09:06 Dose: Not Given Documented by: Furosemide (Lasix) 20 mg IV BIDD [facility] Last Admin: 03/30/19 09:04 Dose: 20 mg Documented by: Heparin Sodium (Porcine) (Heparin) 5,000 unit SQ Q12 [facility] Last Admin: 03/30/19 09:05 Dose: 5,000 unit Documented by: Acetaminophen (Ofirmev) 650 mg in 65 mls @ 130 mls/hr IV Q6HP PRN; Protocol PRN Reason: Per Pain Protocol/Fever > 101 Potassium Chloride 40 meq/ (Dextrose) 520 mls @ 130 mls/hr IV UD PRN PRN Reason: K+ = or < 3.5 Last Admin: 03/29/19 05:27 Dose: 130 mls/hr Documented by: Magnesium Sulfate (Magnesium Sulfate) 2 gm in 50 mls @ 50 mls/hr IV UD PRN PRN Reason: MG = or < 1.7 Last Admin: 03/29/19 10:21 Dose: 25 mls/hr Documented by: Iron Carb/Multivit/Paint Stockman/Folic Acid (Multivitamin W/Minerals) 1 tab PO DAILY [facility] Last Admin: 03/30/19 09:06 Dose: 1 tab Documented by: Lisinopril (Zestril) 2.5 mg PO DAILY [facility] Last Admin: 03/30/19 09:05 Dose: 2.5 mg Documented by: Melatonin (Melatonin 3mg Tablet) 6 mg PO HSP PRN PRN Reason: Insomnia Last Admin: 03/29/19 21:27 Dose: 6 mg Documented by: Ondansetron HCl (Zofran) 4 mg IV Q4-6HP PRN; Protocol PRN Reason: Nausea And Vomiting Potassium Chloride (Klor-Con) 40 meq PO DAILYP PRN PRN Reason: K+ < 3.5 Potassium Chloride (Potassium Chloride) 15 meq PO BIDCC [facility] Last Admin: 03/30/19 09:06 Dose: 15 meq Documented by: Senna/Docusate Sodium (Senna Plus Tablet) 1 tab PO HS [facility] Last Admin: 03/29/19 21:23 Dose: Not Given Documented by: Sertraline HCl (Zoloft) 50 mg PO DAILY [facility] Last Admin: 03/30/19 09:06 Dose: 50 mg Documented by: Sodium Chloride (Saline Flush) 10 ml IV Q8 [facility] Last Admin: 03/30/19 05:19 Dose: 10 ml Documented by: Medical - PN: A/P - Time Spent With Patient Total time spent is greater than 50% in coordination of care (as documented) at patient's floor/unit and/or counseling patient: 25 - 35 minutes (1) Hypokalemia Status: Acute Assessment and plan: * Critical hypokalemia improved from 2.2->2.7-> 3.3. Continue oral potassium replacement. * Lower extremity lymphedema-echo shows preserved EF. Clinically improved with continued diuresis/continue limb elevation, patient refused compression wraps * History of COPD likely CO2 retention. Continue bronchodilators * History of hypertension -currently normotensive. Continue KENNY inhibitor * Hyperlipidemia/history of CVA continue statin * Anxiety disorder continue sertraline, hold benzodiazepine * Full code * Prophylaxis - heparin PLAN * Continue potassium replacement * Limb elevation/diuresis * Pre-existing medical condition management home meds * PT OT/nutrition support * Discharge planning per case management likely to SNF in 24 hours Current Visit: Yes
[2019-03-30] MEDS: POTASSIUM CHLORIDE 20 MEQ TABLET PO SCH ×2 (12:18→17:33)
[2019-03-30] MEDS: SENNOSIDES/DOCUSATE SODIUM 1 TAB TABLET PO SCH (20:16)
[2019-03-30] MEDS: ATORVASTATIN 20 MG TABLET PO SCH (20:20)
[2019-03-30] MEDS: MELATONIN 3 MG TABLET PO PRN (20:20)
[2019-03-30] MEDS: ACETAMINOPHEN 325 MG TABLET PO PRN (20:21)
[2019-03-31] MEDS: 0.9 % SODIUM CHLORIDE 10 ML SYRINGE IV SCH (05:26)
[2019-03-31 05:50] LABS: Hematocrit 36.9 % (36.0-48.0); Hemoglobin 12.5 g/dL (12.0-15.0); Mean Corpuscular HGB Conc 33.9 g/dL (31.0-36.0); Mean Platelet Volume 7.7 fL (7.4-10.4); Platelet Count 240 K/mcL (140-440); RBC 3.88 M/mcL (4.00-5.20); Red Cell Distribution Width 15.4 % (11.5-14.5); WBC 7.9 K/mcL (4.5-11.0)
[2019-03-31 07:38] LABS: ALT/SGPT 23 U/l (0-40); AST/SGOT 25 U/l (0-37); Albumin 3.2 gm/dL (3.2-5.2); Albumin/Globulin Ratio 1.2 (1.0-2.3); Alkaline Phosphatase 56 U/L (39-117); Bilirubin,Direct 0.4 mg/dL (0.0-0.3); Blood Urea Nitrogen 20 mg/dl (8-23); Calcium 9.2 mg/dl (8.6-10.4); Carbon Dioxide 33 mmol/L (22-30); Chloride 93 mmol/L (96-108); Globulin 2.7 gm/dL (2.2-3.7); Glomerular Filtration Rate 54; Glucose 136 mg/dL (70-105); Lactate Dehydrogenase 226 U/L (94-250); Phosphorous 3.1 mg/dL (2.7-4.5); Triglycerides 92 mg/dl (<150); Uric Acid 6.9 mg/dL (2.5-8.0)
[2019-03-31] MEDS ORDERED: FUROSEMIDE 20 MG TABLET PO SCH (08:00)
[2019-03-31 08:02] LABS: Band Neutrophils % 1 % (0-10); Eosinophils % (Manual) 3 % (0-7); Lymphocytes % 21 % (15-49); Metamyelocytes % 2 % (0-0); Monocytes % (Manual) 10 % (1-12); Platelet Estimate NORMAL (NORMAL); RBC Morphology NORMAL (NORMAL); Reactive Lymphocytes 3 % (0-2); Segmented Neutrophils % 60 % (38-78)
[2019-03-31] MEDS: HEPARIN 5,000 UNIT/ML VIAL SQ SCH (08:29)
[2019-03-31] MEDS: LISINOPRIL 5 MG TABLET PO SCH (08:29)
[2019-03-31] MEDS: POTASSIUM CHLORIDE 20 MEQ/15 ML ML PO SCH (08:29)
[2019-03-31] MEDS: DOCUSATE SODIUM 100 MG CAPSULE PO SCH (08:30)
[2019-03-31] MEDS: MULTIVIT,THER IRON,CA,FA & MIN 1 TABLET PO SCH (08:30)
[2019-03-31] MEDS: SERTRALINE 50 MG TABLET PO SCH (08:30)
[2019-03-31] MEDS: FUROSEMIDE 40 MG/4 ML VIAL IV SCH (09:06)
--- NOTE | 2019-03-31 09:34 | Discharge Summary ---
Medical - DS: Prov Patient information: Note initiated : 03/31/19 at 9:31 am Service Date, if different from initiated Date: [] Patient: Maddy Lo 78 y/o F admitted on 03/28/19 for chest pain. Chief Complaint: [] Date of admission: 03/28/19 16:15 Discharge date: 03/31/19 Primary care physician: Nadia Howell Consults: 03/29/19 07:53 Consult to Physician [CONS] Routine Comment: Consulting Provider: Storm Novak Reason For Exam: Physician to Consult Medical - DS: Meds - Discharge Medications Prescriptions: Melatonin [Melatonin 3Mg Tablet] 6 mg PO HSP PRN #30 tab PRN Reason: Insomnia Prescription Printed Active and Home Medications: Home Medications Albuterol Sulfate 2.5 mg IH DAILY 03/08/17 [History Confirmed 03/28/19 Last Taken Unknown] Atorvastatin [Lipitor] 20 mg PO HS 03/08/17 [History Confirmed 03/28/19 Last Taken 08/21/18] Lisinopril [Zestril] 2.5 mg PO DAILY 03/08/17 [History Confirmed 03/28/19 Last Taken 08/23/18] potassium chloride 10 mEq capsule,extended release 10 meq PO QDAY 08/13/18 [History Confirmed 03/28/19 Last Taken 08/21/18] Sertraline [Zoloft] 50 mg PO DAILY 08/23/18 [History Confirmed 03/28/19 Last Taken 08/21/18] Furosemide [Lasix] 20 mg PO DAILY tab 03/31/19 [Rx Last Taken Unknown] Melatonin [Melatonin 3Mg Tablet] 6 mg PO HSP PRN #30 tab 03/31/19 [Rx Last Taken Unknown] Medical - DS: Hosp Hospital Course: Discharge diagnosis * Critical hypokalemia improved from 2.2->2.7-> 3.3->4.5 with aggressive replacement. Secondary to chlorthalidone. DC chlorthalidone * Lower extremity lymphedema-echo shows preserved EF. Clinically improved with diuresis. Continue Lasix 20 mg daily/limb elevation/compressive wraps. Transfer to SNF for continued posthospitalization rehab * History of COPD likely CO2 retention. Stable on bronchodilators * History of hypertension -currently normotensive. Continue KENNY inhibitor. Discontinue chlorthalidone * Hyperlipidemia/history of CVA continue statin * Anxiety disorder continue sertraline, discontinue benzodiazepine * Advanced pqmdbzvs-[id number]-[id number] score 10. Continue dementia care/delirium watch. Avoid benzodiazepines/opioids and hypnotics Brief hospital course Ms. Lo is a 78 year old F morbidly obese lady with a history of chronic lower extremity lymphedema/hypertension/CVA/COPD who presents to the ER after being unable to walk and feeling extremely weak. As per history she went to [place] today but was unable to walk due to significant leg swelling and cramping. She subsequently called her friend and was brought into the ER for evaluation. Initial work-up was essentially unremarkable except for a potassium of 2.2. Patient received 40 meq of oral and IV potassium and subsequently hospitalist service was consulted in light of critical hypokalemia. Echo was ordered however review of echocardiogram performed June 2018 reveals diastolic dysfunction with LVH and preserved EF. She clearly denied recent diarrhea, nausea vomiting or lack of appetite. She normally uses diuretics for a long-standing lower extremity lymphedema and ran out of it during a trip to [place]. Patient restarted taking diuretics after experiencing increasing weight gain along with lower extremity swelling and difficulty ambulation. Other than that patient denies high salt intake, chest pain, lightheadedness, chest palpitation or xjhg-ojd-zxgvzjl medications intake. Later in the evening I was able to connect with patient's daughter at [place]. She is able to provide much of the history but endorses that her mother has significant dementia. Her mother actually called shortly after admission and told her that she has been in the hospital for more than 24 hours. While questioning patient endorsed that she lives at [facility] but per daughter she has not been there for over 45 years. Daughter was concerned about patient's building paranoia towards her sisters who are always willing to help her but she suspects that they were stealing from her and has several relationship. Daughter expressed concerns about her safety and inability to take care of self and requested if her mother could be placed at the care facility/assisted living. 03/29-patient doing better. Potassium up to 2.7 status post 80 meq replacement. Continue additional 80 meq potassium replacement today magnesium at 1.7. Patient remains paranoid intermittently paranoid with in between lucid intervals. She has been hemodynamically stable without any telemetry medically events. She has been cooperative with physical therapy. No family members at bedside. Echocardiogram reveals preserved EF with concentric LVH. No evidence of pulmonary hypertension. 03/30-potassium improved to 3.3. Continue additional 80 meq potassium replacement. Patient agreeable to SNF transfer. Case management coordinating. Diuresing well with over 3000 cc net negative fluid balance. Able to ambulate. Continue PT OT/nutrition support 03/31-patient doing remarkably better. No overnight events. No concerns per staff. No fever chills nausea vomiting. Diuresed well. Potassium 4.5. Systolics around 110. Much improved lymphedema. Charge him to SNF is advised to continue daily weights/diuretics. Discharge instructions as below Discharge diagnosis: . - Time Spent with Patient Total time spent providing and/or coordinating discharge services: Greater than 30 minutes Medical - DS: Exam - Constitutional Vitals: Vital Signs Temp Pulse Resp BP BP Pulse Ox 03/31/19 08:50 93 03/31/19 08:00 97.9 F 14 109/68 93 03/31/19 03:38 98.4 F 80 20 94/78 94 03/31/19 00:00 98.8 F 80 20 99/55 92 03/30/19 20:00 99.0 F 72 18 96/61 92 03/30/19 16:00 98 F 76 16 95/60 97 03/30/19 11:48 98.4 F 67 16 113/78 96 Intake and Output 03/30/19 03/31/19 03/31/19 21:59 05:59 13:59 Intake Total 120 300 Output Total 500 0 300 Balance -380 300 -300 Intake: Oral 120 300 Output: Urine Catheter Amount 0 Void Amount 500 250 Stool 50 Other: Meal Dinner Percent of Meal Consumed 50% Feeding Ability Assist with Tray Set Up Urine Appearance Clear Urine Color Dark Yellow Stool Size Small Stool Color Brown Stool Consistency Liquid Weight 190 lb 4 oz Medical - DS: Data Labs on day of discharge: Labs from last 24 hours 03/31/19 03/31/19 06:23 03:30 WBC 7.9 RBC 3.88 L Hgb 12.5 Hct 36.9 MCV 95.0 MCH 32.2 MCHC 33.9 RDW 15.4 H Plt Count 240 MPV 7.7 Total Counted 100 Seg Neutrophils % 60 Band Neutrophils % 1 Lymphocytes % 21 Monocytes % (Manual) 10 Eosinophils % (Manual) 3 Metamyelocytes % 2 H Reactive Lymphocytes 3 H Platelet Estimate Normal RBC Morphology Normal Sodium 134 Potassium 4.5 Chloride 93 L Carbon Dioxide 33 H Anion Gap 8.0 BUN 20 Creatinine 1.0 GFR Calculation 54 Glucose 136 H Uric Acid 6.9 Calcium 9.2 Phosphorus 3.1 Magnesium 2.1 Total Bilirubin 2.0 H Direct Bilirubin 0.4 H GGT 13 AST 25 ALT 23 Alkaline Phosphatase 56 Lactate Dehydrogenase 226 Total Protein 5.9 Albumin 3.2 Globulin 2.7 Albumin/Globulin Ratio 1.2 Triglycerides 92 Medical - DS: A/P - Patient/Caregiver Discharge Instructions Activity: as per physical therapy, resume usual activities as tolerated Diet: Low Sodium (2gm) Additional Instructions: Continue Lasix/potassium as advised Discontinue chlorthalidone Daily weights All meals sitting upright to prevent aspiration Compression wrap/limb elevation for lower extremity edema Continue PT OT as tolerated Dementia care Prescriptions: Melatonin [Melatonin 3Mg Tablet] 6 mg PO HSP PRN #30 tab PRN Reason: Insomnia Prescription Printed - Problem Maintenance (1) Hypokalemia Status: Acute - Follow up Plan Follow up with: Nadia Howell ARNP [Primary Care Provider] - Disposition: Xfer SNF Prognosis: Fair Rehab Potential: Fair I certify that the patient requires SNF services: Yes Overall status at discharge: patient is progressing back to baseline
== END 2019-03-31 11:05 | DRG 641 ==
LOC: ED 11:32 → ICU 11:32 → OBSVTOIN 16:15 → ICU 16:28
PROVIDERS: ADMIT Internal Medicine; ATTEND Internal Medicine